=== PATIENT | male | born 1940 | race Caucasian/White ===

== ENCOUNTER 2018-01-29 12:48 | Emergency (ER) | payer OTHER ==
[~2018-01-29] VITALS: Ht 180.3 cm; Wt 88.2 kg
[~2018-01-29 12:48] MED LIST: NIACIN; ZOFRAN ODT4 MG PO
[2018-01-29] MEDS ORDERED: ZETIA10 MG PO (12:59)
[2018-01-29] MEDS ORDERED: NORVASC10 MG PO (12:59)
[2018-01-29] MEDS ORDERED: RED YEAST RICE600 MG PO (13:00)
[2018-01-29] MEDS ORDERED: FISH OIL 1,001000 M2 PO (13:00)
[2018-01-29] MEDS ORDERED: VITAMIN D3400 UNIT PO (13:01)
[2018-01-29 13:03] LABS: URINE BLOOD NEGATIVE (Negative); URINE CLARITY CLEAR; URINE COLOR YELLOW; URINE GLUCOSE-RANDOM NEGATIVE (Negative); URINE KETONES 1+ (Negative); URINE LEUKOCYTES-REFLEX NEGATIVE (Negative); URINE NITRITE-REFLEX NEGATIVE (Negative); URINE PROTEIN 1+ (Negative); URINE SPECIFIC GRAVITY >= 1.030 (1.005-1.030); URINE UROBILINOGEN 0.2 E.U./dl (0.2-1.0)
[2018-01-29 13:04] LABS: ABSOLUTE BASOPHILS 0.1 thou/uL (0.0-0.2); ABSOLUTE EOSINOPHILS 0.5 thou/uL (0.0-0.7); ABSOLUTE LYMPHOCYTES 1.8 thou/uL (0.8-5.3); ABSOLUTE MONOCYTES 0.9 thou/uL (0.0-1.2); ABSOLUTE NEUTROPHILS 4.1 thou/uL (1.6-8.1); BASOPHILS 1.2 %; EOSINOPHILS 6.7 %; HEMATOCRIT 45.2 % (42.0-52.0); HEMOGLOBIN 15.1 gm/dL (14.0-18.0); LYMPHOCYTES 24.9 %; MCH 32.4 pg (26.0-34.0); MCHC 33.4 g/dL (28.0-37.0); MONOCYTES 12.3 %; MPV 7.7 fl. (7.2-11.1); NUCLEATED RBCS 0 /100WBC; PLATELET COUNT* 258 thou/uL (150-400); POLYS 54.9 %; RBC 4.66 mil/uL (4.50-6.00); RDW-CV 12.8 % (10.5-14.5); WBC 7.4 thou/uL (4.0-11.0)
[2018-01-29 13:08] LABS: ICTOTEST (BILI CONFIRMATORY) Negative (Negative); URINE BILIRUBIN 1+ (Negative)
[2018-01-29 13:12] LABS: CREATININE 1.7 mg/dL (0.6-1.3); POTASSIUM 4.4 mmol/L (3.5-5.1)
[2018-01-29 13:16] LABS: ALBUMIN 3.8 g/dL (3.4-5.0); TOTAL BILIRUBIN 0.9 mg/dL (<0.1-1.0); TOTAL PROTEIN 7.9 g/dL (6.4-8.2)
[2018-01-29 15:56] LABS: CREATININE 1.6 mg/dL (0.6-1.3); POTASSIUM 4.7 mmol/L (3.5-5.1)
[2018-01-29 16:13] VITALS: BP 151/76
== END 2018-01-29 16:14 | disposition home or self-care (01) ==
LOC: M.ERS 12:48
PROVIDERS: Nurse Practitioner Family
DX: K80.20 Calculus of gallbladder without cholecystitis without obstruction (principal); E86.0 Dehydration; I10 Essential (primary) hypertension; Z85.46 Personal history of malignant neoplasm of prostate

== ENCOUNTER → 2018-06-21 | Outpatient (CLI) | payer OTHER ==
[~2018-06-21] MED LIST changes: +ASPIR-LOW81 MG PO; +FISH OIL 1,001000 M2 PO; +NORVASC10 MG PO; +RED YEAST RICE600 MG PO; +VITAMIN D3400 UNIT PO; +ZETIA10 MG PO
--- NOTE | 2018-06-21 13:33 | 2DMMODE ---
[place] [address] 2 D/M-MODE ECHOCARDIOGRAM Name: VIVIANSABINO J Room: [facility]#: [id number] Admission: 06/21/18 Attend Phys: Nato Flores Discharge: Date of : 42 Date of Service: 06/21/18 1333 Report #: [id number] THIS REPORT FOR: //name// APPROVED REPORT Study performed: 06/21/2018 08:14:56 EXAM: Comprehensive 2D, Doppler, and color-flow Echocardiogram Patient Location: Out-Patient BSA: 2.11 HR: 85 bpm BP: 150/72 mmHg Other Information Study Quality: Good Indications Murmur 2D Dimensions IVSd: 13.44 (7-11mm) LVOT Diam: 20.23 (18-24mm) LVDd: 39.92 mm PWd: 10.01 (7-11mm) Ascending Ao: 33.15 (22-36mm) LVDs: 20.81 (25-40mm) Aortic Root: 28.68 mm Volumes Left Atrial Volume (Systole) LA ESV Index: 14.20 mL/m2 Aortic Valve AoV Peak Mikal.: 2.83 m/s AO Peak Gr.: 31.94 mmHg LVOT Max P.60 mmHg AO Mean Gr.: 20.21 mmHg LVOT Mean P.51 mmHg LVOT Max V: 0.95 m/s AO V2 VTI: 64.28 cm LVOT Mean V: 0.55 m/s SAGE (VTI): 0.95 cm2 LVOT V1 VTI: 19.04 cm Mitral Valve E/A Ratio: 0.54 MV Decel. Time: 474.47 ms MV E Max Mikal.: 0.47 m/s MV PHT: 137.60 ms MVA (PHT): 1.60 [place] [address] 2 D/M-MODE ECHOCARDIOGRAM Name: SABINO PARK Room: [facility]#: [id number] Admission: 06/21/18 Attend Phys: Nato Flores Discharge: Date of : 42 Date of Service: 06/21/18 1333 Report #: [id number] TDI E/Lateral E': 6.71 E/Medial E': 6.71 Medial E' Mikal.: 0.07 m/s Lateral E' Mikal.: 0.07 m/s Pulmonary Valve PV Peak Mikal.: 0.95 m/s PV Peak Gr.: 3.57 mmHg Left Ventricle The left ventricle is normal size. There is normal LV segmental wall motion. There is normal left ventricular wall thickness. Left ventricular systolic function is normal. The left ventricular ejection fraction is within the normal range. LVEF is 60-65%. Grade I - abnormal relaxation pattern. Right Ventricle The right ventricle is normal size. The right ventricular systolic function is normal. Atria The left atrium size is normal. The right atrium size is normal. Aortic Valve Moderate aortic valve sclerosis. No aortic regurgitation is present. Moderate aortic stenosis. Mitral Valve The mitral valve is normal in structure. Mild mitral regurgitation. No evidence of mitral valve stenosis. Tricuspid Valve The tricuspid valve is normal in structure. There is no tricuspid valve regurgitation noted. Pulmonic Valve The pulmonary valve is normal in structure. There is no pulmonic valvular regurgitation. Great Vessels The aortic root is normal in size. IVC is normal in size and collapses >50% [place] [address] 2 D/M-MODE ECHOCARDIOGRAM Name: SABINO PARK Room: [facility] [place]#: [id number] Admission: 06/21/18 Attend Phys: Nato Flores Discharge: Date of : 42 Date of Service: 06/21/18 1333 Report #: [id number] Pericardium There is no pericardial effusion. <Conclusion> LVEF is 60-65%. Moderate aortic stenosis. <ELECTRONICALLY SIGNED> By: David Crews MD, [facility] 06/21/18 1333 133 1333 David Crews MD, FACC /INF
== END ==
LOC: M.CRD 06-12 08:00
DX: I34.0 Nonrheumatic mitral (valve) insufficiency (principal); I35.0 Nonrheumatic aortic (valve) stenosis; R01.1 Cardiac murmur, unspecified

== ENCOUNTER → 2018-07-06 | Day surgery (SDC) | payer OTHER ==
--- NOTE | ~2018-07-06 | OP ---
[facility] [address] [place] [address] OPERATIVE REPORT Name: VIVIANSABINO J Room: [facility].#: [id number] Admission: 07/06/18 Attend Phys: Wagner Olsen Discharge: Date of : 42 Report #: [id number] THIS REPORT FOR: //name// CC: Wagner Olsen Yolis Gonsalez DATE OF SERVICE: 07/06/2018 PREOPERATIVE DIAGNOSIS: Right inguinal hernia. POSTOPERATIVE DIAGNOSIS: Right indirect inguinal hernia. PROCEDURE: Repair of right inguinal hernia with mesh. SURGEON: Wagner Olsen MD ANESTHESIA: General. ESTIMATED BLOOD LOSS: Minimal. SPECIMEN: Cord lipoma. DESCRIPTION OF PROCEDURE: After informed consent was obtained, the patient was brought to the Operating Room and placed supine. SCDs were placed and working. preoperative antibiotics were administered, general anesthesia was induced. The abdomen was prepped and draped in the usual sterile fashion. A 7 cm incision was made in the right groin 1 cm above the external ring. Cautery dissection was made down to the aponeurosis of the external oblique, which was incised. A [place] drain was placed around the cord structures. I was able to dissect out the cord lipoma. This was ligated with a 3-0 Vicryl tie. I then dissected out the indirect hernia sac. This was fully reduced to the internal ring. I then inserted a large Bard PerFix plug. It was sutured to the conjoined area as well as the shelving edge of the inguinal ligament. I then placed the patch at the pubic tubercle. Interrupted 2-0 Prolene sutures were used to suture it to the shelving edge of the inguinal ligament as well as the conjoined area. The tails were tied around the cord and sutured together as well. The aponeurosis was reapproximated with a running 3-0 Vicryl suture. The skin was closed with 4-0 Monocryl in running subcuticular fashion. Incision was dressed with Steri-Strips and sterile gauze. COMPLICATIONS: [place] [address] OPERATIVE REPORT Name: SABINO PARK Room: [facility].#: [id number] Admission: 07/06/18 Attend Phys: Wagner Olsen Discharge: Date of : 42 Report #: [id number] DISPOSITION: The patient was taken to Recovery in satisfactory condition. By: 1539 [id number] Olsen MD /nt
[2018-07-06 14:14] LABS: HEMATOCRIT 42.1 % (42.0-52.0); HEMOGLOBIN 14.2 gm/dL (14.0-18.0); MCH 32.6 pg (26.0-34.0); MCHC 33.7 g/dL (28.0-37.0); MCV 96.8 fL (80.0-100.0); MPV 7.8 fl. (7.2-11.1); RBC 4.35 mil/uL (4.50-6.00); RDW-CV 12.4 % (10.5-14.5); WBC 7.3 thou/uL (4.0-11.0)
[2018-07-06 14:24] LABS: CALCIUM 9.3 mg/dL (8.5-10.1); CREATININE 1.4 mg/dL (0.6-1.3); POTASSIUM 3.7 mmol/L (3.5-5.1)
--- NOTE | 2018-07-06 15:38 | EKG ---
[place] [address] ELECTROCARDIOGRAM REPORT Name: SABINO PARK Bee Room: [facility].#: [id number] Admission: 07/06/18 Attend Phys: Wagner Olsen Discharge: Date of : 42 Report #: [id number] THIS REPORT FOR: //name// [facility] Test Date: 2018-07-06 Test Time: 13:49:51 Pat Name: SABINO PARK Department: Room: Gender: M Online Marketing Coordinator: : 1940 Requested By: Wagner Olsen Order Number: [id number] Akiko MD: David Crews Measurements Intervals Colp Rate: 77 P: 61 RI: 164 QRS: 5 QRSD: 99 T: 59 QT: 385 QTc: 436 Interpretive Statements Sinus rhythm Abnormal R-wave progression, early transition Compared to ECG 06/12/2010 12:15:11 No significant changes Electronically Signed On 07-06-2018 15:38:34 [employer]PON MANIFEST CLERK by David Crews [email or web address] <ELECTRONICALLY SIGNED> By: David Crews MD, [facility] 07/06/18 1538 D: 02/1348 48 David Crews MD, FACC /EPI
--- NOTE | 2018-07-10 15:05 | PATH ---
[address] [address] PATHOLOGY RPT PROCEDURE Name: WILFRID ANTHONY Room: [facility]..#: [id number] Admission: 07/06/18 Date of : 42 Discharge: Report #: [id number] Path Case #: [id number] [facility] Accession Number: [id number] . 01 Material submitted: . CORD LIPOMA . 01 Clinical history: . Right inguinal hernia . 02 Diagnosis: Soft tissue, "cord lipoma", excision: - Lipoma. . (SKM:mmsita; 07/10/2018) QL/07/10/2018 . 02 Electronically signed: . Solomon Koehler MD, Pathologist NPI- [id number] . 01 Gross description: . The specimen is received in formalin, labeled "Wilfrid Anthony, cord lipoma" and consists of a segment of yellow lobulated soft tissue partially encapsulated by rodriguez castillo membranous tissue measuring 4.3 x 3.5 x 1.8 cm. Sectioning reveals no nodules or mass lesions and artists' booking representative sections are submitted in A1. (SDY; 07/07/2018) SYU/SYU . 02 Pathologist provided ICD-10: D17.6 . 02 CPT . 707946 Specimen Comment: A courtesy copy of this report has been sent to Specimen Comment: [phone], . Specimen Comment: Report sent to / DR MARCH Performed at: [address], [place], [place] [id number] MD Matthew Cornell MD Phone: [phone] Performed at: 02 [facility] [address], [place], [place] [id number] MD Mehrdad Faustin MD Phone: [phone]
== END | disposition home or self-care (01) ==
LOC: M.SUR 06-08 08:11
PROVIDERS: Surgery
DX: K40.90 Unilateral inguinal hernia, without obstruction or gangrene, not specified as recurrent (principal); D17.6 Benign lipomatous neoplasm of spermatic cord; I10 Essential (primary) hypertension; E78.5 Hyperlipidemia, unspecified; Z87.891 Personal history of nicotine dependence; Z85.46 Personal history of malignant neoplasm of prostate; Z98.890 Other specified postprocedural states; Z79.82 Long term (current) use of aspirin; Z79.899 Other long term (current) drug therapy

== ENCOUNTER → 2018-12-11 | Outpatient (CLI) | payer OTHER | LOC: M.ULTRA 07:30 | DX: K80.20 Calculus of gallbladder without cholecystitis without obstruction (principal); N28.1 Cyst of kidney, acquired; R63.4 Abnormal weight loss; I10 Essential (primary) hypertension; E78.5 Hyperlipidemia, unspecified; Z79.82 Long term (current) use of aspirin; Z79.899 Other long term (current) drug therapy ==